=== PATIENT | male | born 1995 ===

== ENCOUNTER 2023-05-31 13:08 | Day surgery (SDC) | payer SELFPAY ==
[~2023-05-31] VITALS: Ht 180 cm; Wt 93.0 kg
[2023-05-31] VITALS (10 sets, daily range): BP systolic 83–123; BP diastolic 55–76
[2023-05-31] MEDS ORDERED: NS IV 1000 ML 1,000 ML IV STA ×2 (13:22→14:51)
--- NOTE | 2023-05-31 13:25 | ED Abdominal Pain ---
General Chief Complaint: Abdominal/GI Problems Stated Complaint: ABD PAIN | SWEATING | DIZZY Source of Information: Patient Exam Limitations: No Limitations History of Present Illness Date Seen by Provider: May 31, 2023 Time Seen by Provider: 13:23 Initial Comments Patient is a 27-year-old male who presents ED with generalized abdominal pain. Pain started Wednesday evening. Pain is described as sharp and crampy and rates 10 out of 10. This has been constant. Nausea and vomiting and diarrhea yesterday but that has improved today. Was seen at [facility] recommended come to ED for further evaluation. Patient is speaking. Photoengraving Etcher Apprentice was used. Patient has been taken Tylenol without much improvement. Denies of any dysuria, decreased urine output, chest pain, cough, shortness of breath, ear pain or sore throat. No history of previous abdominal surgery. Patient has not been eating as much Allergies and Home Medications Allergies Coded Allergies: No Known Drug Allergies (Unverified , 05/31/23) Patient Home Medication List Home Medication List Reviewed: Yes Review of Systems Review of Systems Constitutional: No chills, No diaphoresis, No fever, No malaise, No weakness Respiratory: Denies Cough, Denies Orthopnea Cardiovascular: Denies Chest Pain Gastrointestinal: Abdominal Pain, Diarrhea, Nausea, Vomiting Genitourinary: Denies Burning, Denies Discharge, Denies Drainage, Denies Frequency Musculoskeletal: No back pain Skin: No change in color, No change in hair/nails All Other Systems Reviewed Negative Unless Noted: Yes Physical Exam Vital Signs Vital Signs - First Documented 05/31/23 13:15 Temp 36.3 Pulse 105 Resp 18 B/P (MAP) 109/64 (79) Pulse Ox 98 O2 Delivery Room Air Capillary Refill : Height/Weight/BMI Height: '" Weight: lbs. oz. kg; BMI Method: General Appearance: WD/WN, no apparent distress HEENT: PERRL/EOMI, normal ENT inspection, TMs normal, pharynx normal Neck: non-tender, full range of motion, supple Respiratory: chest non-tender, lungs clear, normal breath sounds, no respi ratory distress, no accessory muscle use Cardiovascular: regular rate, rhythm, no edema, no gallop, no JVD Gastrointestinal: normal bowel sounds, soft, no organomegaly, tenderness (Diffuse abdominal tenderness) Extremities: normal range of motion, non-tender, normal inspection Back: normal inspection, no CVA tenderness Neurologic/Psychiatric: reserve 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, no motor/sensory deficits, alert, normal mood/affect, oriented x 3 Skin: normal color, warm/dry Progress/Results/Core Measures Results/Orders Lab Results Laboratory Tests Test 05/31/23 13:24 05/31/23 13:31 Range/Units White Blood Count 11.4 H 4.3-11.0 10^3/uL Red Blood Count 5.58 H 4.30-5.52 10^6/uL Hemoglobin 15.8 13.3-17.7 g/dL Hematocrit 47 40-54 % Mean Corpuscular Volume 85 80-99 fL Mean Corpuscular Hemoglobin 28 25-34 pg Mean Corpuscular Hemoglobin Concent 33 32-36 g/dL Red Cell Distribution Width 13.4 10.0-14.5 % Platelet Count 180 130-400 10^3/uL Mean Platelet Volume 10.5 9.0-12.2 fL Immature Granulocyte % (Auto) 0 % Neutrophils (%) (Auto) 92 H 42-75 % Lymphocytes (%) (Auto) 3 L 12-44 % Monocytes (%) (Auto) 4 0-12 % Eosinophils (%) (Auto) 0 0-10 % Basophils (%) (Auto) 1 0-10 % Neutrophils # (Auto) 10.5 H 1.8-7.8 10^3/uL Lymphocytes # (Auto) 0.3 L 1.0-4.0 10^3/uL Monocytes # (Auto) 0.5 0.0-1.0 10^3/uL Eosinophils # (Auto) 0.0 0.0-0.3 10^3/uL Basophils # (Auto) 0.1 0.0-0.1 10^3/uL Immature Granulocyte # (Auto) 0.1 0.0-0.1 10^3/uL Neutrophils % (Manual) 61 % Lymphocytes % (Manual) 3 % Monocytes % (Manual) 8 % Eosinophils % (Manual) 1 % Metamyelocytes % 8 % Band Neutrophils 19 % Blood Morphology Comment NORMAL Prothrombin Time 16.3 H 12.2-14.7 SEC INR Comment 1.3 0.8-1.4 Activated Partial Thromboplast Time 37 H 24-35 SEC Sodium Level 135 135-145 MMOL/L Potassium Level 3.3 L 3.6-5.0 MMOL/L Chloride Level 102 98-107 MMOL/L Carbon Dioxide Level 20 L 21-32 MMOL/L Anion Gap 13 5-14 MMOL/L Blood Urea Nitrogen 25 H 7-18 MG/DL Creatinine 1.55 H 0.60-1.30 MG/DL Estimat Glomerular Filtration Rate 63 BUN/Creatinine Ratio 16 Glucose Level 100 70-105 MG/DL Calcium Level 9.3 8.5-10.1 MG/DL Corrected Calcium 9.0 8.5-10.1 MG/DL Total Bilirubin 3.0 H 0.1-1.0 MG/DL Direct Bilirubin 2.0 H 0.0-0.3 MG/DL Indirect Bilirubin 1.0 MG/DL Aspartate Amino Transf (AST/SGOT) 20 5-34 U/L Alanine Aminotransferase (ALT/SGPT) 34 0-55 U/L Alkaline Phosphatase 53 40-136 U/L Total Protein 7.7 6.4-8.2 GM/DL Albumin 4.4 3.2-4.5 GM/DL Lipase 7 L 8-78 U/L Serum Alcohol < 10 <10 MG/DL Urine Color RED H Urine Clarity SLIGHTLY CLOUDY Urine pH 5.0 5-9 Urine Specific [place] >=1.030 1.016-1.022 Urine Protein 3+ H NEGATIVE Urine Glucose (UA) TRACE H NEGATIVE Urine Ketones TRACE H NEGATIVE Urine Nitrite POSITIVE H NEGATIVE Urine Bilirubin 3+ H NEGATIVE Urine Urobilinogen 2.0 < = 1.0 MG/DL Urine Leukocyte Esterase NEGATIVE NEGATIVE Urine RBC (Auto) NEGATIVE NEGATIVE Urine RBC NONE /HPF Urine WBC 2-5 /HPF Urine Squamous Epithelial Cells 2-5 /HPF Urine Crystals PRESENT H /LPF Urine Amorphous Sediment FEW HANS URATES H /LPF Urine Bacteria LARGE H /HPF Urine Casts PRESENT /LPF Urine Hyaline Casts 5-10 H /LPF Urine Mucus MODERATE H /LPF Urine Culture Indicated YES My Orders Orders - AUGUSTINE NELSON Cbc With Automated Diff (05/31/23 13:21) Comprehensive Metabolic Panel (05/31/23 13:21) Lipase (05/31/23 13:21) Ua Culture If Indicated (05/31/23 13:21) Ct Abdomen/Pelvis W (05/31/23 13:21) Ondansetron Injection (Zofran Injectio (05/31/23 13:30) Ketorolac Injection (Ketorolac Injection (05/31/23 13:30) Ns Iv 1000 Ml (Sodium Chloride 0.9%) (05/31/23 13:22) Iohexol Injection (Omnipaque 350 Mg/Ml 1 (05/31/23 13:30) Received Contrast (Hold Metformin- Contr (05/31/23 13:30) Ns (Ivpb) 100 Ml (Sodium Chloride 0.9% 1 (05/31/23 13:30) Manual Differential (05/31/23 13:24) Urine Culture (05/31/23 13:31) Alcohol (05/31/23 13:55) Bilirubin, Total And Direct (05/31/23 13:57) Partial Thromboplastin Time (05/31/23 14:01) Protime With Inr (05/31/23 14:01) Piperacillin Sodium/Tazobactam (Zosyn Vi (05/31/23 15:00) Ns Iv 1000 Ml (Sodium Chloride 0.9%) (05/31/23 14:51) Ed Admission (Communication) (05/31/23 14:57) Fentanyl Injection (Fentanyl Injection (05/31/23 15:33) Medications Given in ED Current Medications Medications Dose Ordered Sig/Heraclio Route Start Time Stop Time Status Last Admin Dose Admin Fentanyl Citrate 100 mcg STK-MED ONCE .ROUTE 05/31/23 15:33 05/31/23 15:36 DC 05/31/23 15:35 100 MCG Iohexol 100 ml ONCE ONCE IV 05/31/23 13:30 05/31/23 13:31 DC 05/31/23 14:14 80 ML Ketorolac Tromethamine 30 mg ONCE ONCE IVP 05/31/23 13:30 05/31/23 13:31 DC 05/31/23 13:31 30 MG Ondansetron HCl 4 mg ONCE ONCE IVP 05/31/23 13:30 05/31/23 13:31 DC 05/31/23 13:31 4 MG Piperacillin Sod/ Tazobactam Sod 4.5 gm/Sodium Chloride 100 ml @ 200 mls/hr ONCE ONCE IV 05/31/23 15:00 05/31/23 15:29 DC 05/31/23 16:27 200 MLS/HR Sodium Chloride 100 ml ONCE ONCE IV 05/31/23 13:30 05/31/23 13:31 DC 05/31/23 14:14 80 ML Vital Signs/I&O 05/31/23 13:15 Temp 36.3 Pulse 105 Resp 18 B/P (MAP) 109/64 (79) Pulse Ox 98 O2 Delivery Room Air Departure Communication (PCP) Patient is a 27-year-old male who presents the ED for abdominal pain. Limited history secondary to language barrier. Photoengraving Etcher Apprentice was used. Friend at bedside was able to help translate. Patient with generalized abdominal pain since Wednesday. Nausea vomiting diarrhea. Vomiting diarrhea worse yesterday some improvement today. Has not eaten for 2 days. No history of previous abdominal surgery. On exam patient does have diffuse tenderness which seems to be worse to his right and left lower quadrant. Normal urination. He is afebrile but slightly tachycardic. CBC, CMP, lipase, urinalysis was initiated with a liter of fluid, Zofran and ketorolac. CBC showed white blood count 11.4. Bands noted. Chemistry creatinine 1.55, BUN 25, potassium 3.3. Normal liver enzymes. Bilirubin at 3.0. Direct bilirubin 2.0. Urinalysis concerning for infection with nitrites. Ketones and proteins noted. Denies of any specific urinary symptoms or concern for STDs according to patient. CT abdomen pelvis shows Multiple sites of inflammation including the appendix indicating acute appendicitis. There are also multiple foci of small bowel mural thickening including left upper quadrant and terminal ileum. This was discussed with general surgeon Dr. Mae who reviewed the CT scan. Concerning for acute appendicitis. Recommends n.p.o. started on Zosyn and admit to him. Patient last drank right before arrival. He states he last ate 2 days ago. Impression Primary Impression: Appendicitis Disposition: ADMITTED INPATIENT Condition: Stable Admissions Decision to Admit Reason: Admit from ER (General) Decision to Admit/Date: May 31, 2023 Time/Decision to Admit Time: 14:56 Departure-Patient Inst. Referrals: NO,LOCAL PHYSICIAN (PCP/Family) Primary Care Physician AUGUSTINE NELSON May 31, 2023 13:25
[2023-05-31] MEDS ORDERED: IOHEXOL 350 MG/ML 100 ML (OMNIPAQUE 350) VIAL IV ONE (13:30)
[2023-05-31] MEDS ORDERED: KETOROLAC INJ 30 MG/ML VIAL IVP ONE (13:30)
[2023-05-31] MEDS ORDERED: NS 100 ML (IVPB) BAG IV ONE (13:30)
[2023-05-31] MEDS ORDERED: ONDANSETRON INJECTION 4 MG/2 ML (SDV) IVP ONE (13:30)
[2023-05-31] MEDS ORDERED: HOLD METFORMIN - RECEIVED CONTRAST 20 ML VIAL IV SCH (13:30)
[2023-05-31 13:33] LABS: BASOPHILS # (AUTO) 0.1 10^3/uL (0.0-0.1); BASOPHILS % (AUTO) 1 % (0-10); EOSINOPHILS % (AUTO) 0 % (0-10); HEMATOCRIT 47 % (40-54); HEMOGLOBIN 15.8 g/dL (13.3-17.7); LYMPHOCYTES # (AUTO) 0.3 10^3/uL (1.0-4.0); LYMPHOCYTES % (AUTO) 3 % (12-44); MEAN CORPUSCULAR HEMOGLOBIN 28 pg (25-34); MEAN CORPUSCULAR HGB CONC 33 g/dL (32-36); MEAN CORPUSCULAR VOLUME 85 fL (80-99); MEAN PLATELET VOLUME 10.5 fL (9.0-12.2); MONOCYTES # (AUTO) 0.5 10^3/uL (0.0-1.0); MONOCYTES % (AUTO) 4 % (0-12); NEUTROPHILS # (AUTO) 10.5 10^3/uL (1.8-7.8); NEUTROPHILS % (AUTO) 92 % (42-75); PLATELET COUNT 180 10^3/uL (130-400); WHITE BLOOD COUNT 11.4 10^3/uL (4.3-11.0)
[2023-05-31 13:41] LABS: BILIRUBIN,URINE 3+ (NEGATIVE); CLARITY,URINE SLIGHTLY CLOUDY; COLOR,URINE RED; GLUCOSE, URINE (UA) TRACE (NEGATIVE); KETONES,URINE TRACE (NEGATIVE); NITRITE,URINE POSITIVE (NEGATIVE); PROTEIN,URINE 3+ (NEGATIVE)
[2023-05-31 13:43] LABS: LEUKOCYTE ESTERASE ,URINE NEGATIVE (NEGATIVE)
[2023-05-31 13:48] LABS: ALBUMIN 4.4 GM/DL (3.2-4.5); POTASSIUM 3.3 MMOL/L (3.6-5.0)
[2023-05-31 13:49] LABS: BACTERIA,URINE LARGE /HPF
[2023-05-31 13:49] LABS: CALCIUM 9.3 MG/DL (8.5-10.1)
[2023-05-31 13:50] LABS: AMORPHOUS SEDIMENT,UR FEW AMOR URATES /LPF
[2023-05-31 13:50] LABS: TOTAL PROTEIN 7.7 GM/DL (6.4-8.2)
[2023-05-31 13:54] LABS: CREATININE SERUM 1.55 MG/DL (0.60-1.30)
[2023-05-31 14:04] LABS: BAND NEUTROPHILS 19 %; EOSINOPHILS % (MANUAL) 1 %; LYMPHOCYTES % (MANUAL) 3 %; MONOCYTES % (MANUAL) 8 %; NEUTROPHILS % (MANUAL) 61 %
[2023-05-31 14:05] LABS: METAMYELOCYTES % 8 %; RBC MORPH NORMAL
[2023-05-31 14:15] LABS: INR 1.3 (0.8-1.4); PROTHROMBIN TIME PATIENT 16.3 SEC (12.2-14.7)
--- NOTE | 2023-05-31 14:37 | Diagnostic Imaging Report ---
PROCEDURE: CT abdomen and pelvis with contrast. TECHNIQUE: Multiple contiguous axial images were obtained through the abdomen and pelvis after administration of intravenous contrast. Auto Exposure Controls were utilized during the CT exam to meet ALARA standards for radiation dose reduction. All CT scans use one or more of the following dose optimizing techniques: automated exposure control, MA and/or KvP adjustment based on patient size and exam type or iterative reconstruction. INDICATION: Abdominal pain and nausea There is mild linear atelectasis and/or scarring in the lung bases. No focal hepatic, gallbladder, pancreatic, splenic or adrenal gland abnormality is identified. Kidneys are unremarkable in appearance. There is significant mural thickening with surrounding inflammation involving the appendix and ascending colon. There is mild dilatation of small bowel proximally with areas of additional focal mural thickening of small bowel loops in the left upper quadrant. There is significant mural thickening at the level of terminal ileum. No definite organized fluid collection seen to indicate abscess. There is mild pelvic free fluid. IMPRESSION: Multiple sites of inflammation including the appendix indicating acute appendicitis. There are also multiple foci of small bowel mural thickening including left upper quadrant and terminal ileum. This may represent regional enteritis possibly on the basis of Crohn's disease. There is mild pelvic free fluid however no definite abscess or pneumoperitoneum is identified. Dictated by: Dictated on workstation # [id number]
[2023-05-31] MEDS ORDERED: PIPERACILLIN/Tazobactam 4.5 GM in NS (IVPB) 100 ML 100 ML IV ONE (15:00)
--- NOTE | 2023-05-31 15:16 | History & Physical-Surgical ---
History of Present Illness History of Present Illness Patient Consulted On(maddie/time) 05/31/23 15:09 Date Seen by Provider: May 31, 2023 Time Seen by Provider: 15:09 History of Present Illness 27 year old Congolese speaking man presents with a primary complaint of with diffuse abdominal pain that has started 3 days ago. The pain is a 8/10, and is constant. The pain has been alleviated by pain medications which helped a little bit, and walking, laying down, and rapid movements have made his movements worse. The patient had 8 bouts of diarrhea on Wednesday- and had a fever yesterday- all have been alleviated since then. Patient has not eaten food for the last 2 days. Multiple sites of inflammation including the appendix indicating acute appendicitis. There are also multiple foci of small bowel mural thickening including left upper quadrant and terminal ileum. This may represent regional enteritis possibly on the basis of Crohn's disease. 27 year old male with pain starting wednesday in abdomen. 8/10 constant. Generalized pain. Movement makes worse. Some pain medication med a little more tolerable. Not wanting food. Had ct scan today which is more consistant with appendicitis but some small bowel area with mural thickening. Allergies and Home Medications Allergies Coded Allergies: No Known Drug Allergies (Unverified , 05/31/23) Patient Home Medication List Home Medication List Reviewed: Yes Past Gplimbr-Rjhiho-Ljfoal Hx Patient Social History Smoking Status: Current Everyday Smoker Type Used: Cigarettes Recent Hopitalizations: No Alcohol Use?: Yes Surgeries History of Surgeries: No Respiratory History of Respiratory Disorde: No Cardiovascular History of Cardiac Disorders: No Reviewed Nursing Assessment Reviewed/Agree w Nursing PMH: Yes Family Medical History Significant Family History: No Pertinent Family Hx Review of Systems-General Constitutional: chills (patient had a fever yesterday), fever (yesterday patient had a fever) EENTM: No blurred vision, No double vision, No eye pain Respiratory: No cough, No dyspnea on exertion, No hemoptysis, No short of breath Cardiovascular: No chest pain, No syncope Gastrointestinal: abdominal pain (diffuse abdominal pain); No constipation (8 bouts of diarrhea yesterday); diarrhea; No heartburn; vomiting (vomit twice upon onset ) Genitourinary: No decreased output, No discharge Musculoskeletal: No no symptoms reported, No back pain, No joint pain Skin: No change in color, No change in hair/nails Psychiatric/Neurological: Denies Anxiety, Denies Depressed, Denies Numbness, Denies Paresthesia, Denies Tingling All Other Systems Reviewed Negative Unless Noted: Yes (Negative excepted noted.) Physical Exam-General Problems Physical Exam Vital Signs Vital Signs - First Documented 05/31/23 13:15 Temp 36.3 Pulse 105 Resp 18 B/P (MAP) 109/64 (79) Pulse Ox 98 O2 Delivery Room Air Capillary Refill : Less Than 3 Seconds General Appearance: WD/WN, mild distress Eyes: Bilateral Eye Normal Inspection HEENT: PERRL/EOMI, normal ENT inspection Neck: non-tender, full range of motion, normal inspection Respiratory: chest non-tender, lungs clear, normal breath sounds, no respiratory distress Cardiovascular: normal peripheral pulses, regular rate, rhythm, no edema, no JVD Peripheral Pulses: 2+ Radial Pulses (R), 2+ Radial Pulses (L) Gastrointestinal: soft, tenderness (around mid abdomen but more in rlq) Back: no CVA tenderness, no vertebral tenderness; No decreased range of motion Extremities: normal range of motion, non-tender, normal inspection, normal capillary refill; No calf tenderness Neurologic/Psychiatric: terminal make up operator II-XII nml as tested, no motor/sensory deficits, alert, normal mood/affect, oriented x 3 Skin: normal color, warm/dry Lymphatic: no adenopathy Data Review Labs Laboratory Tests 05/31/23 13:24: White Blood Count 11.4H, Red Blood Count 5.58H, Hemoglobin 15.8, Hematocrit 47, Mean Corpuscular Volume 85, Mean Corpuscular Hemoglobin 28, Mean Corpuscular Hemoglobin Concent 33, Red Cell Distribution Width 13.4, Platelet Count 180, Mean Platelet Volume 10.5, Immature Granulocyte % (Auto) 0, Neutrophils (%) (Auto) 92H, Lymphocytes (%) (Auto) 3L, Monocytes (%) (Auto) 4, Eosinophils (%) (Auto) 0, Basophils (%) (Auto) 1, Neutrophils # (Auto) 10.5H, Lymphocytes # (Auto) 0.3L, Monocytes # (Auto) 0.5, Eosinophils # (Auto) 0.0, Basophils # (Auto) 0.1, Immature Granulocyte # (Auto) 0.1, Neutrophils % (Manual) 61, Lymphocytes % (Manual) 3, Monocytes % (Manual) 8, Eosinophils % (Manual) 1, Metamyelocytes % 8, Band Neutrophils 19, Blood Morphology Comment NORMAL, Prothrombin Time 16.3H, INR Comment 1.3, Activated Partial Thromboplast Time 37H , Sodium Level 135, Potassium Level 3.3L, Chloride Level 102, Carbon Dioxide Level 20L, Anion Gap 13, Blood Urea Nitrogen 25H, Creatinine 1.55H, Estimat Glomerular Filtration Rate 63, BUN/Creatinine Ratio 16, Glucose Level 100, Calcium Level 9.3, Corrected Calcium 9.0, Total Bilirubin 3.0H, Direct Bilirubin 2.0H, Indirect Bilirubin 1.0, Aspartate Amino Transf (AST/SGOT) 20, Alanine Aminotransferase (ALT/SGPT) 34, Alkaline Phosphatase 53, Total Protein 7.7, Albumin 4.4, Lipase 7L, Serum Alcohol < 10 05/31/23 13:31: Urine Color REDH, Urine Clarity SLIGHTLY CLOUDY, Urine pH 5.0, Urine Specific [place] >=1.030, Urine Protein 3+H, Urine Glucose (UA) TRACEH, Urine Ketones TRACEH, Urine Nitrite POSITIVEH, Urine Bilirubin 3+H, Urine Urobilinogen 2.0, Urine Leukocyte Esterase NEGATIVE, Urine RBC (Auto) NEGATIVE, Urine RBC NONE, Urine WBC 2-5, Urine Squamous Epithelial Cells 2-5, Urine Crystals PRESENTH, Urine Amorphous Sediment FEW HANS URATESH, Urine Bacteria LARGEH, Urine Casts PRESENT, Urine Hyaline Casts 5-10H, Urine Mucus MODERATEH, Urine Culture Indicated YES Assessment/Plan Assessment/Plan Admission Diagonsis diffuse abdominal pain, more in [facility] acute appendicitis enteritis Admission Status: Observation Assessment/Plan diffuse abdominal pain, more in [facility] acute appendicitis enteritis reviewed ct scan feel most of issue is acute appendicitis discussed risks and benefits of laparoscopic appendectomy all other indicated procedures and wishes to proceed NPO IV Fluids Surgical Removal of Appendix Consent for procedure Josen Supervisory-Addendum Brief Verification & Attestation Participated in pt care: history, MDM, physical Personally performed: exam, history, MDM, supervision of care Care discussed with: Medical Student Procedures: n/a Results interpretation: Verified all documentation Verification and Attestation of Medical Student E/M Service A medical student performed and documented this service in my presence. I reviewed and verified all information documented by the medical student and made modifications to such information, when appropriate. I personally performed the physical exam and medical decision making. Joselyn Mae, May 31, 2023,15:43 MEGHNA BARROS May 31, 2023 15:16 JOSELYN MAE DO May 31, 2023 15:43
[2023-05-31] MEDS ORDERED: fentaNYL INJECTION 100 MCG/2 ML VIAL ONE ×3 (15:33→17:43)
[2023-05-31] MEDS ORDERED: LIDOCAINE 1% w/EPI 1:100,000 20 ML VIAL ONE (16:00)
[2023-05-31] MEDS ORDERED: MIDAZOLAM INJ 2 MG/2 ML VIAL ONE (16:16)
[2023-05-31] MEDS: LACTATED RINGERS 1,000 ML 1,000 ML IV PRN ×3 (16:20→18:32)
[2023-05-31] MEDS ORDERED: PHENYLEPHRINE 100 MCG/ML 10 ML (ANESTHESIA) SYR ONE (17:00)
[2023-05-31] MEDS ORDERED: dexAMETHasone INJ 10 MG/ML 1 ML VIAL ONE (17:00)
[2023-05-31] MEDS ORDERED: ONDANSETRON INJECTION 4 MG/2 ML (SDV) ONE (17:00)
[2023-05-31] MEDS ORDERED: SUCCINYLCHOLINE INJ 20 MG/1 ML 10 ML VIAL ONE (17:01)
[2023-05-31] MEDS ORDERED: SEVOFLURANE (ULTANE) 15 ML INHAL SOLN ONE ×2 (17:01→17:44)
[2023-05-31] MEDS ORDERED: ROCURONIUM 50 MG/5 ML VIAL IV ONE (17:01)
[2023-05-31] MEDS ORDERED: proPOfol INJECTION 200 MG/20 ML VIAL IV ONE (17:01)
[2023-05-31] MEDS ORDERED: SUGAMMADEX 500 MG/5 ML VIAL (BRIDION) IV ONE (17:43)
[2023-05-31] MEDS ORDERED: ONDANSETRON INJECTION 4 MG/2 ML (SDV) IVP PRN ×2 (18:15→18:45)
[2023-05-31] MEDS ORDERED: fentaNYL INJECTION 100 MCG/2 ML VIAL IVP ONE (18:15)
--- NOTE | 2023-05-31 18:32 | Progress Note-Post Operative ---
Post-Operative Progess Note Surgeon (s)/Plastering Contractor (s) Surgeon JOSELYN MITATL DO Plastering Contractor: na Pre-Operative Diagnosis acute appendicitis Post-Operative Diagnosis perforated appendicitis Procedure & Operative Findings Date of Procedure 05/31/23 Procedure Performed/Findings PROCEDURE: Laparoscopic appendectomy and drain placement COMPLICATIONS: None. INDICATIONS: The patient is a 27 year old male who has been having right lower quadrant abdominal pain. Patient's exam consistent with appendicitis. I discussed risk and benefits of laparoscopic appendectomy and all indicated procedures with the possibility being a normal appendix. The patient understands the risks and benefits and wishes to proceed. Consent was signed on the chart. DESCRIPTION OF PROCEDURE: The patient was taken to the operating suite, prepped and draped in a sterile fashion. Timeout was performed. Local anesthetic was infiltrated just above the umbilicus and 11-blade scalpel was used to make a skin incision. Cautery was used to dissect down to the fascia and scored. Kochers were used to grasp and elevate it and the abdomen was then entered. A 0 Vicryl was placed in a [id number] fashion for closure at the end of the case. The balloon trocar was inserted into the abdomen and pneumoperitoneum was achieved. Under direct visualization of the laparoscope, a 5 mm trocar was placed in the suprapubic region and a 5 mm trocar was placed in the left lower quadrant. Appendix was located, Inflamed omentum and purulent material right gutter. Lots of irrigation and omentum raised and visualized the cecum. The appendix was dilated and distal was inflamed and perforated. The base of the appendix was dissected around. Once at the base an Endo-ZIYAD 2.5 stapler was then fired across the base of the appendix. The mesoappendix was then divided. It was then placed in an Endobag and removed through the 12 mm trocar site. The abdomen was then irrigated and suctioned. 19 Blade drain was placed in right gutter and brought out from the suprapubic port site. No other pathology noted. The abdomen was then desufflated and the trocars were removed. The 0 Vicryl placed at the beginning of the case was then tied closing the 12 mm fascial defect. The skin was then closed using 4-0 Monocryl in a subcuticular fashion. The abdomen was then washed and dried and Skin Affix was placed over the incisions. The patient tolerated the procedure well without any complications and was taken to the recovery room in stable condition. Anesthesia Type general Estimated Blood Loss Estimated blood loss (mL): minimal Specimens/Packing Specimens Removed appendix Packing: Drain JOSELYN MITTAL DO May 31, 2023 18:32
[2023-05-31] MEDS ORDERED: morphine INJ 10 MG/ML 1ML (SYR OR VIAL) IVP PRN (18:45)
[2023-05-31] MEDS ORDERED: morphine INJ 4 MG/ML 1 ML (VIAL/SYRINGE) IV PRN (19:45)
[2023-05-31] MEDS: LACTATED RINGERS 1,000 ML 1,000 ML IV SCH (20:30)
[2023-05-31] MEDS: PIPERACILLIN/Tazobactam 4.5 GM in NS (IVPB) 100 ML 100 ML IV SCH (22:19)
[2023-05-31] MEDS: HYDROcodone/ACETAMINOPHEN 5 MG/325 MG TABLET PO PRN (22:27)
[2023-06-01] VITALS (7 sets, daily range): BP systolic 98–128; BP diastolic 54–589
[2023-06-01] MEDS: LACTATED RINGERS 1,000 ML 1,000 ML IV SCH ×3 (01:49→18:22)
[2023-06-01] MEDS: HYDROcodone/ACETAMINOPHEN 5 MG/325 MG TABLET PO PRN ×4 (01:49→22:33)
[2023-06-01] MEDS: PIPERACILLIN/Tazobactam 4.5 GM in NS (IVPB) 100 ML 100 ML IV SCH ×3 (05:47→22:30)
--- NOTE | 2023-06-01 07:21 | Progress Note - Surgery ---
CANDELARIOJESI SANDRAITE 06/01/23 0721: Subjective Date Seen by a Provider: Jun 01, 2023 Time Seen by a Provider: 07:10 Subjective/Events-last exam Ashutosh is a 27yo barbadian speaking man who presented with diffused abdominal pain and underwent and emergency appendectomy yesterday. Today he is in good spirits and describes his stomach pain as a constant 3/10. He states that the pain is mostly centered at the epigastric regon. His pain has been controlled by pain medication. He has been able to urinate on his own but reports some dysuria. Pt denies chest pain, diarrhea, and nausea. He used his incentive spirometer only a few times yesterday and was instructed and shown how to use it better. Pt is afebrile. He reports an appetite and is thirsty. His brother accompanies him and speaks some Icelandic. Review of Systems General: No Chills, No Night Sweats; Appetite HEENT: No Dysphasia, No Sinus Congestion Pulmonary: No Cough, No Pleuritic Chest Pain Cardiovascular: No: Chest Pain, Palpitations Gastrointestinal: Abdominal Pain; No: Nausea, Diarrhea Genitourinary: Dysuria Musculoskeletal: No: neck pain, arm pain Neurological: No: Change in speech, Confusion Focused Exam Respiratory: No Accessory Muscle Use, No Respiratory Distress Cardiovascular: No JVD, Normal Peripheral Pulses Peripheral Pulses: 2+ Radial Pulses (R), 2+ Radial Pulses (L) Skin: normal color, warm/dry Objective Exam Vital Signs Date Time Temp Pulse Resp B/P (MAP) Pulse Ox O2 Delivery O2 Flow Rate FiO2 06/01/23 03:19 36.8 82 20 98/57 (71) 95 Room Air 05/31/23 23:34 36.4 100 20 88/55 (66) 93 Room Air 05/31/23 20:56 Room Air 05/31/23 20:01 36.8 98 20 99/55 (70) 94 Room Air 05/31/23 20:01 Room Air 05/31/23 18:55 Room Air 05/31/23 18:55 36.6 20 104/71 (82) 95 Room Air 05/31/23 18:50 20 106/72 (83) 95 Room Air 05/31/23 18:50 Room Air 05/31/23 18:44 Room Air 05/31/23 18:40 Room Air 05/31/23 18:40 18 104/69 (81) 94 Room Air 05/31/23 18:36 OxyMask 2.00 05/31/23 18:31 OxyMask 4.00 05/31/23 18:30 18 114/69 (84) 99 OxyMask 4.00 05/31/23 18:29 OxyMask 6.00 05/31/23 18:20 18 110/59 (76) 100 OxyMask 6.00 05/31/23 18:18 OxyMask 6.00 05/31/23 18:10 OxyMask 6.00 05/31/23 18:10 22 123/65 (84) 100 OxyMask 6.00 05/31/23 18:05 20 105/76 (86) 100 OxyMask 6.00 05/31/23 18:00 OxyMask 6.00 05/31/23 18:00 36.5 20 83/68 (73) 96 OxyMask 6.00 05/31/23 16:12 92 16 108/64 99 05/31/23 13:15 36.3 105 18 109/64 (79) 98 Room Air I & O 06/01/23 07:00 Intake Total 3400 ml Output Total 1420 ml Balance 1980 ml Capillary Refill : Less Than 3 Seconds Peripheral Pulses: 2+ Radial Pulses (R), 2+ Radial Pulses (L) Gastrointestinal: normal bowel sounds, soft, no organomegaly, tenderness (epigastric region) Results Lab Laboratory Tests 05/31/23 13:24: White Blood Count 11.4H, Red Blood Count 5.58H, Hemoglobin 15.8, Hematocrit 47, Mean Corpuscular Volume 85, Mean Corpuscular Hemoglobin 28, Mean Corpuscular Hemoglobin Concent 33, Red Cell Distribution Width 13.4, Platelet Count 180, Mean Platelet Volume 10.5, Immature Granulocyte % (Auto) 0, Neutrophils (%) (Auto) 92H, Lymphocytes (%) (Auto) 3L, Monocytes (%) (Auto) 4, Eosinophils (%) (Auto) 0, Basophils (%) (Auto) 1, Neutrophils # (Auto) 10.5H, Lymphocytes # (Auto) 0.3L, Monocytes # (Auto) 0.5, Eosinophils # (Auto) 0.0, Basophils # (Auto) 0.1, Immature Granulocyte # (Auto) 0.1, Neutrophils % (Manual) 61, Lymphocytes % (Manual) 3, Monocytes % (Manual) 8, Eosinophils % (Manual) 1, Metamyelocytes % 8, Band Neutrophils 19, Blood Morphology Comment NORMAL, Prothrombin Time 16.3H, INR Comment 1.3, Activated Partial Thromboplast Time 37H , Sodium Level 135, Potassium Level 3.3L, Chloride Level 102, Carbon Dioxide Level 20L, Anion Gap 13, Blood Urea Nitrogen 25H, Creatinine 1.55H, Estimat Glomerular Filtration Rate 63, BUN/Creatinine Ratio 16, Glucose Level 100, Calcium Level 9.3, Corrected Calcium 9.0, Total Bilirubin 3.0H, Direct Bilirubin 2.0H, Indirect Bilirubin 1.0, Aspartate Amino Transf (AST/SGOT) 20, Alanine Aminotransferase (ALT/SGPT) 34, Alkaline Phosphatase 53, Total Protein 7.7, Albumin 4.4, Lipase 7L, Serum Alcohol < 10 05/31/23 13:31: Urine Color REDH, Urine Clarity SLIGHTLY CLOUDY, Urine pH 5.0, Urine Specific [place] >=1.030, Urine Protein 3+H, Urine Glucose (UA) TRACEH, Urine Ketones TRACEH, Urine Nitrite POSITIVEH, Urine Bilirubin 3+H, Urine Urobilinogen 2.0, Urine Leukocyte Esterase NEGATIVE, Urine RBC (Auto) NEGATIVE, Urine RBC NONE, Urine WBC 2-5, Urine Squamous Epithelial Cells 2-5, Urine Crystals PRESENTH, Urine Amorphous Sediment FEW HANS URATESH, Urine Bacteria LARGEH, Urine Casts PRESENT, Urine Hyaline Casts 5-10H, Urine Mucus MODERATEH, Urine Culture Indicated YES Assessment/Plan Assessment/Plan Assessment/Plan s/p acute appendectomy enteritis dysuria liquid diet - advance as tolerable IV Fluids IV abx pain control repeat labs Incentive spirometry ambulate patient prepare for care at home RUBEN MAE DO 06/01/232054: Subjective Subjective/Events-last exam Feeling better today. Pain controlled. Tolerating clears. Using IS. Ambulating. Denies n/v fevers sweats chills shortness of breath or chest pain. Objective Exam General Appearance: No Apparent Distress, WD/WN HEENT: PERRL/EOMI, Normal ENT Inspection Neck: Normal Inspection, Non Tender Respiratory: Chest Non Tender, No Accessory Muscle Use, No Respiratory Distress Cardiovascular: Regular Rate, Rhythm, No JVD Gastrointestinal: soft, tenderness (incisional, drain with serous/murky fluid) Extremity: Non Tender, No Calf Tenderness Neurologic/Psychiatric: Alert, Oriented x3 Skin: Normal Color, Warm/Dry Lymphatic: No Adenopathy Assessment/Plan Assessment/Plan Assessment/Plan s/p laparoscopic appendectomy with drain placement for perforated appendicitis enteritis dysuria liquid diet if doing well advance tomorrow IV Fluids IV abx pain control repeat labs Incentive spirometry ambulate patient scd's and ambulation for dvt prophylaxis Supervisory-Addendum Brief Verification & Attestation Participated in pt care: history, MDM, physical Personally performed: exam, history, MDM, supervision of care Care discussed with: Medical Student Procedures: n/a Results interpretation: Verified all documentation Verification and Attestation of Medical Student E/M Service A medical student performed and documented this service in my presence. I reviewed and verified all information documented by the medical student and made modifications to such information, when appropriate. I personally performed the physical exam and medical decision making. Ruben Mae, Jun 01, 2023,20:55 GIBSON OMER Jun 01, 2023 07:21 RUBEN MAE DO Jun 01, 2023 20:55
--- NOTE | 2023-06-01 07:42 | Anesthesia-General Post-Op ---
General Patient Condition Mental Status/LOC: Same as Preop Cardiovascular: Satisfactory Nausea/Vomiting: Absent Respiratory: Satisfactory Pain: Controlled Complications: Absent Post Op Complications Complications None Follow Up Care/Instructions Patient Instructions None needed. Anesthesia/Patient Condition Patient Condition Patient is doing well, no complaints, stable vital signs, no apparent adverse anesthesia problems. No complications reported per nursing. VANESA RODRIGUEZ CRNA Jun 01, 2023 07:42
[2023-06-01 08:41] LABS: HEMATOCRIT 40 % (40-54); HEMOGLOBIN 13.4 g/dL (13.3-17.7); MEAN CORPUSCULAR HEMOGLOBIN 29 pg (25-34); MEAN CORPUSCULAR HGB CONC 34 g/dL (32-36); MEAN CORPUSCULAR VOLUME 86 fL (80-99); MEAN PLATELET VOLUME 10.2 fL (9.0-12.2); PLATELET COUNT 148 10^3/uL (130-400); WHITE BLOOD COUNT 10.3 10^3/uL (4.3-11.0)
[2023-06-01 08:59] LABS: CALCIUM 8.6 MG/DL (8.5-10.1); CREATININE SERUM 0.87 MG/DL (0.60-1.30); POTASSIUM 3.8 MMOL/L (3.6-5.0)
[2023-06-02] MEDS: LACTATED RINGERS 1,000 ML 1,000 ML IV SCH (03:30)
[2023-06-02 03:35] VITALS: BP 103/68
[2023-06-02 05:52] LABS: HEMATOCRIT 38 % (40-54); HEMOGLOBIN 12.4 g/dL (13.3-17.7); MEAN CORPUSCULAR HEMOGLOBIN 29 pg (25-34); MEAN CORPUSCULAR HGB CONC 33 g/dL (32-36); MEAN CORPUSCULAR VOLUME 87 fL (80-99); MEAN PLATELET VOLUME 10.6 fL (9.0-12.2); PLATELET COUNT 176 10^3/uL (130-400); WHITE BLOOD COUNT 10.9 10^3/uL (4.3-11.0)
[2023-06-02] MEDS: PIPERACILLIN/Tazobactam 4.5 GM in NS (IVPB) 100 ML 100 ML IV SCH (06:00)
[2023-06-02 06:08] LABS: POTASSIUM 3.8 MMOL/L (3.6-5.0)
[2023-06-02 06:09] LABS: CALCIUM 8.5 MG/DL (8.5-10.1)
[2023-06-02 06:13] LABS: CREATININE SERUM 0.83 MG/DL (0.60-1.30)
--- NOTE | 2023-06-02 07:05 | Progress Note - Surgery ---
GIBSON OMER 06/02/23 0705: Subjective Date Seen by a Provider: Jun 02, 2023 Time Seen by a Provider: 07:02 Subjective/Events-last exam Ashutosh is a 27yo liberian speaking man who presented with diffused abdominal pain and underwent and emergency appendectomy Wednesday. He states that he is in a little pain - 10 - that worsens when he gets up from bed. He walked 5-10 minutes on his own yesterday. He has been able to urinate comfortably and has had 2 bowel movements. Pt denies chest pain.. He used his incentive spirometer 10x/hr yesterday er. Pt is afebrile. He reports an appetite and is thirsty. His brother accompanies him and speaks some [place]. He states he is ready to go home. Review of Systems General: No Chills, No Night Sweats; Appetite HEENT: No Visual Changes, No Eye Pain, No Dysphasia Pulmonary: No Cough, No Pleuritic Chest Pain Cardiovascular: No: Chest Pain, Palpitations, Edema Gastrointestinal: Abdominal Pain (10/27); No: Diarrhea, Constipation Genitourinary: No Dysuria, No Incontinence Musculoskeletal: No: neck pain, shoulder pain Neurological: No: Change in speech, Confusion Focused Exam Respiratory: Normal Breath Sounds, No Accessory Muscle Use, No Respiratory Distress Cardiovascular: No Edema, No JVD, JVD; No Tachycardia Peripheral Pulses: 2+ Radial Pulses (R), 2+ Radial Pulses (L) Skin: normal color, warm/dry Objective Exam Vital Signs Date Time Temp Pulse Resp B/P (MAP) Pulse Ox O2 Delivery O2 Flow Rate FiO2 06/02/23 03:35 36.4 73 18 103/68 (80) 95 Room Air 06/01/23 23:37 36.9 87 19 128/72 (90) 96 Room Air 06/01/23 19:38 37.1 71 18 113/59 (77) 95 Room Air 06/01/23 19:20 Room Air 06/01/23 15:29 36.1 62 18 121/70 (87) 98 Room Air 06/01/23 12:01 36.8 73 18 112/57 (75) 95 Room Air 06/01/23 09:13 37.0 76 18 111/54 (73) 94 Room Air 06/01/23 08:00 Room Air 06/01/23 07:51 36.9 75 22 103/61 (75) 96 Room Air I & O 06/02/23 07:00 Intake Total 3695 ml Output Total 540 ml Balance 3155 ml Capillary Refill : Less Than 3 Seconds General Appearance: No Apparent Distress, WD/WN HEENT: PERRL/EOMI, Normal ENT Inspection Neck: Normal Inspection, Non Tender Respiratory: Chest Non Tender, No Accessory Muscle Use, No Respiratory Distress Cardiovascular: Regular Rate, Rhythm, No JVD Peripheral Pulses: 2+ Radial Pulses (R), 2+ Radial Pulses (L) Gastrointestinal: soft, tenderness Extremity: Non Tender, No Calf Tenderness Neurologic/Psychiatric: Alert, Oriented x3 Skin: Normal Color, Warm/Dry Lymphatic: No Adenopathy Results Lab Laboratory Tests 06/01/23 08:33: White Blood Count 10.3, Red Blood Count 4.66, Hemoglobin 13.4, Hematocrit 40, Mean Corpuscular Volume 86, Mean Corpuscular Hemoglobin 29, Mean Corpuscular Hemoglobin Concent 34, Red Cell Distribution Width 13.8, Platelet Count 148, Mean Platelet Volume 10.2, Sodium Level 138, Potassium Level 3.8, Chloride Level 106, Carbon Dioxide Level 24, Anion Gap 8, Blood Urea Nitrogen 16, Creatinine 0.87, Estimat Glomerular Filtration Rate 123, BUN/Creatinine Ratio 18, Glucose Level 169H, Calcium Level 8.6 06/02/23 05:21: White Blood Count 10.9, Red Blood Count 4.33, Hemoglobin 12.4L, Hematocrit 38L, Mean Corpuscular Volume 87, Mean Corpuscular Hemoglobin 29, Mean Corpuscular Hemoglobin Concent 33, Red Cell Distribution Width 13.7, Platelet Count 176, Mean Platelet Volume 10.6, Sodium Level 140, Potassium Level 3.8, Chloride Level 107, Carbon Dioxide Level 27, Anion Gap 6, Blood Urea Nitrogen 21H, Creatinine 0.83, Estimat Glomerular Filtration Rate 125, BUN/Creatinine Ratio 25, Glucose Level 108H, Calcium Level 8.5 Microbiology 05/31/23 Urine Culture - Final, Complete NO GROWTH Assessment/Plan Assessment/Plan Assessment/Plan s/p laparoscopic appendectomy with drain placement for perforated appendicitis enteritis liquid diet if doing well advance IV Fluids IV abx pain control with NSAIDs Incentive spirometry ambulate patient scd's and ambulation for dvt prophylaxis Prepare patient to go home JOSELYN MAE DO 06/02/23 0849: Subjective Subjective/Events-last exam Pain better. Tolerating liquids. Using IS. Wanting to go home. Denies n/v fever sweats chills shortness of breath or chest pain. Objective Exam General Appearance: No Apparent Distress, WD/WN HEENT: PERRL/EOMI, Normal ENT Inspection Neck: Normal Inspection, Non Tender Respiratory: Chest Non Tender, No Accessory Muscle Use, No Respiratory Distress Cardiovascular: Regular Rate, Rhythm, No JVD Gastrointestinal: soft, tenderness Extremity: Non Tender, No Calf Tenderness, Other (drain serous. incisons are clean dry and intact no signs of infection) Neurologic/Psychiatric: Alert, Oriented x3 Skin: Normal Color, Warm/Dry Lymphatic: No Adenopathy Assessment/Plan Assessment/Plan Assessment/Plan s/p laparoscopic appendectomy with drain placement for perforated appendicitis enteritis liquid diet if doing well, advance IV Fluids IV abx convert to oral pain control Incentive spirometry ambulate patient scd's and ambulation for dvt prophylaxis home likely today Final Diagnosis s/p laparoscopic appendectomy with drain placement for perforated appendicitis enteritis Supervisory-Addendum Brief Verification & Attestation Participated in pt care: history, MDM, physical Personally performed: exam, history, MDM, supervision of care Care discussed with: Medical Student Procedures: n/a Results interpretation: Verified all documentation Verification and Attestation of Medical Student E/M Service A medical student performed and documented this service in my presence. I reviewed and verified all information documented by the medical student and made modifications to such information, when appropriate. I personally performed the physical exam and medical decision making. Joselyn Mae, Jun 02, 2023,08:49 GIBSON OMER Jun 02, 2023 07:05 JOSELYN MAE DO Jun 02, 2023 08:49
[2023-06-02 08:00] VITALS: BP 115/72
[2023-06-02] MEDS ORDERED: ACHD5005 PO (08:53)
[2023-06-02] MEDS ORDERED: AMOX1TAB12 PO (08:53)
[2023-06-02] MEDS: HYDROcodone/ACETAMINOPHEN 5 MG/325 MG TABLET PO PRN (08:54)
--- NOTE | 2023-06-02 08:57 | Discharge Inst-Simple/Standard ---
Discharge Inst-Standard Patient Instructions/Follow Up Plan of Care/Instructions/FU: Wednesday [facility]. Keep track of drain output. When drain is less than 30 ml in 24 hours call the office to come in to have removed. Activity as Tolerated: No Discharge Diet: Regular Diet Other Inst to Patient Follow up Appt: Make appointment for Wednesday. Instructions: No lifting greater than 10 pounds. No strenuous activity. May shower in 24 hours, no tub bath or soaking. Use incentive spirometer at home as directed. No Smoking Skin/Wound Care: You have special glue over your incision that will fall off on it's own. Drain keep track amount of drainage in 24 hr increments. When less than 30 mL in 24 hours call the office and have it removed. Symptoms to Report: Appetite Changes, Extremity Discoloration, Numbness/Tingling, Swelling Increas ed, Bleeding Excessive, Eyesight Changes, Pain Increased, Urine Color Change, Constipation(Persistent), Fever over 101 degree F, Pain/Pressure in chest, Urinating Difficulty, Cough Up/Vomit Blood, Heart Beat Irreg/Pounding, Pain/Pressure in jaw, Vaginal Bleeding Increase, Cramps in feet or legs, Lightheadedness, Pain/Pressure in shoulder, Diarrhea(Persistent), Memory Changes Suddenly, Questions/Concerns, Weight gain consecutive days, Dizziness/Fainting, Nausea/Vomiting, Shortness of Breath, Weight gain over 2 pounds If questions or concerns contact your physician Or seek help at emergency department. JOSELYN MITTAL DO Jun 02, 2023 08:57
[2023-06-02 11:06] VITALS: BP 115/72
== END 2023-06-02 11:06 | disposition home or self-care (01) ==
LOC: ER 13:11 → SDC 15:57 → 4TH 18:55 → SDC 06-02 11:06
PROVIDERS: ATTEND Surgery
DX: K35.32 Acute appendicitis with perforation, localized peritonitis, and gangrene, without abscess (principal); K52.9 Noninfective gastroenteritis and colitis, unspecified; R30.0 Dysuria; Z87.891 Personal history of nicotine dependence
CPT/HCPCS: 44970; 74177; 80048; 80053; 81000; 82247; 82248; 83690; 85007; 85027 ×2; 85610; 85730; 87088; 88304; 94664; 96361; 96374; 96375; 99284; G0480; 36415; 80320